=== PATIENT | female | born 1960 | race Caucasian/White ===

== ENCOUNTER → 2021-07-25 14:35 | Outpatient (CLI) | payer BC, SELFPAY | PROVIDERS: Visit Provider Family Medicine | DX: N39.0 Urinary tract infection, site not specified (principal) | CPT/HCPCS: 87086 ==

== ENCOUNTER → 2021-08-25 14:34 | Outpatient (CLI) | payer BC, SELFPAY ==
[2021-08-25 16:10] LABS: Adenovirus,PCR Not Detected (NotDetected); Bordetella Pertussis Not Detected (NotDetected); Chlamydophila Pneumoniae, PCR Not Detected (NotDetected); Coronavirus 229E Not Detected (NotDetected); Coronavirus NL63 Not Detected (NotDetected); Coronavirus OC43 Not Detected (NotDetected); Coronovirus HKU1,PCR Not Detected (NotDetected); Human Metapneumovirus Not Detected (NotDetected); Influenza A, PCR Not Detected (NotDetected); Influenza AH1, 2009 Not Detected (NotDetected); Influenza AH1, PCR Not Detected (NotDetected); Influenza AH3,PCR Not Detected (NotDetected); Influenza B, PCR Not Detected (NotDetected); Mycoplasma Pneumoniae, PCR Not Detected (NotDetected); Parainfluenza 1, PCR Not Detected (NotDetected); Parainfluenza 2, PCR Not Detected (NotDetected); Parainfluenza 3, PCR Not Detected (NotDetected); Parainfluenza 4, PCR Not Detected (NotDetected); Respiratory Syncytial Virus Not Detected (NotDetected); Rhinovirus/Enterovirus Not Detected (NotDetected)
[2021-08-25 18:26] LABS: Coronavirus 19, PCR Detected (NotDetected)
== END ==
PROVIDERS: Visit Provider Family Medicine
DX: U07.1 COVID-19 (principal); R50.9 Fever, unspecified
CPT/HCPCS: 87581; 87632; 87798; C9803; U0003; U0005

== ENCOUNTER → 2023-03-16 16:20 | Outpatient (CLI) | payer BC, SELFPAY ==
[2023-03-16 18:40] LABS: Basophils % 0.4 % (0.1-2.0); Eosinophils # 0.2 K/mm3 (0.0-0.4); Eosinophils % 1.8 % (0.1-12.0); Hematocrit 44.2 % (37.0-47.0); Hemoglobin 13.8 g/dL (12.2-16.2); Lymphocytes # 3.3 K/mm3 (0.7-4.5); Lymphocytes % 40.4 % (10-50); Mean Corpuscular HGB Conc 31.3 g/dL (31.8-35.4); Mean Corpuscular Hemoglobin 30.7 pg (27.0-31.2); Mean Corpuscular Volume 98.3 fl (81-99); Monocytes # 0.3 K/mm3 (0.1-1.0); Monocytes % 3.7 % (1.7-9.3); Neutrophils # 4.4 K/mm3 (1.8-7.8); Neutrophils % 53.6 % (37.0-80.0); Platelet Count 373 K/mm3 (142-424); Red Cell Distribution Width 12.7 % (11.5-17.5); White Blood Count 8.1 K/mm3 (4.8-10.8)
[2023-03-16 18:46] LABS: Alanine Aminotransferase 25 U/L (12-78); Albumin Level 4.3 g/dl (3.5-5.0); Albumin/Globulin Ratio 1.3 (1.1-1.8); Alkaline Phosphatase 144 U/L (38-126); Anion Gap 16.5 mEq/L (5-15); Aspartate Amino Transferase 29 U/L (14-36); Bilirubin,Total 0.3 mg/dl (0.2-1.3); Blood Urea Nitrogen 10 mg/dl (7-17); Calcium 8.9 mg/dl (8.4-10.2); Carbon Dioxide 23 mmol/L (22.0-30.0); Chloride 106 mmol/L (98-107); Estimated Glomerular Filt Rate 85 ml/min (>60); GFR (African American) 103 ML/MIN (>60); Globulin 3.2 g/dL (1.3-3.2); Glucose 119 mg/dl (74-100); HDL Cholesterol 55 mg/dl (40-60); Potassium 3.5 mmoL/L (3.5-5.1); Sodium 142 mmol/L (136-145); Total Protein,Serum 7.5 g/dl (6.3-8.2); Triglycerides 241 mg/dl (30-150); VLDL Cholesterol 48 mg/dL (0-40)
[2023-03-16 18:56] LABS: Chol/HDL Ratio 5.8 (1-3.5); Cholesterol 318 mg/dl (140-200)
[2023-03-16 18:57] LABS: Direct LDL Cholesterol 174.55 mg/dL (100-129)
[2023-03-16 19:19] LABS: Thyroid Stimulating Hormone 1.13 uIU/mL (0.465-4.68)
== END ==
PROVIDERS: PCP Family Medicine; Visit Provider Family Medicine
DX: Z00.00 Encounter for general adult medical examination without abnormal findings (principal); M54.50 Low back pain, unspecified; F41.9 Anxiety disorder, unspecified; J44.9 Chronic obstructive pulmonary disease, unspecified; Z72.0 Tobacco use; Z79.899 Other long term (current) drug therapy
CPT/HCPCS: 80053; 80061; 84443; 85025

== ENCOUNTER 2024-03-14 12:10 | Outpatient (CLI) | payer BC, SELFPAY ==
--- NOTE | 2024-03-14 12:23 | XR_ITS ---
FINAL REPORT CLINICAL HISTORY: hip pain FINDINGS: Three views of the right hip demonstrate no acute fracture or dislocation. The joint spaces appear normal. The visualized bony structures are well aligned. No soft tissue abnormality is seen. IMPRESSION: No acute bony abnormality. Reviewed, Interpreted and Dictated by Adam Corrales MD Transcribed by Argenis Steele Authenticated and [facility]
--- NOTE | 2024-03-14 12:23 | XR_ITS ---
FINAL REPORT CLINICAL HISTORY: Hip pain FINDINGS: Two views of the left hip demonstrate no acute fracture or dislocation. The joint spaces appear normal. The visualized bony structures are well aligned. No soft tissue abnormality is seen. IMPRESSION: No acute bony abnormality. Reviewed, Interpreted and Dictated by Adam Corrales MD Transcribed by Argenis Steele Authenticated and . [facility]
== END 2024-03-14 23:59 | disposition home or self-care (01) ==
LOC: RAD 12:16
PROVIDERS: PCP Family Medicine; Visit Provider Family Medicine
DX: M15.4 Erosive (osteo)arthritis (principal); M25.551 Pain in right hip; M25.552 Pain in left hip
CPT/HCPCS: 73502

== ENCOUNTER 2025-01-02 06:49 | Outpatient (CLI) | payer OTHER, SELFPAY ==
--- OUTSIDE RECORDS SUMMARY | 2025-01-02 06:51 | XMS_ITS | Data Portability ---
Author Organization [facility] ADMIN Address [address] [place] [id number] Assessment No assessment recorded. Plan of Treatment Reminders Order Date Submit Date Provider Last Modified By Organization Details Last Modified Time Details Appointments None record ed. Lab None record ed. Referral None record ed. Procedures None record ed. Surgeries None record ed. Imaging None record ed. Medication Orders None record ed. Patient TargetsNo targets recorded. Patient InstructionsNo instructions recorded. Reason for Referral None Reported. Results Created Date Observation Date Name Description Value Unit Range Abnormal Flag Note LastModifiedBy Organization Detail LastModifiedTime 06/17/20 audio gram No observ ation record ed. [email or web address] Not Available 06/17 07:59:21 06/21/2006/21/2023 audio gram No observ ation record ed. [email or web address] Not Available 2022 12:52:41 Result Notes None recorded. Problems Name Problem SNOMED Code Status Onset Date Resolution Date Notes Provider Name and Address Organization Details Recorded Time Sensorineural hearing loss 56097503 Active 2022 AGAPITO CHEN, AUD [address] [facility], [place], [address] , [facility] & [place] 12:50:11 Problem Notes None recorded. Procedures Surgical History None recorded. Imaging Results Imaging Date Name Status LastModified by Organiz ation Details LastModified Time 06/17/2023 audiogram completed [email or web address] Information no t available 06/17/2023 07:59:21 06/21/2023 audiogram completed [email or web address] Information no t available 06/21/2023 12:52:41 Procedure Notes None recorded. Medical Equipment None Reported. Medications Name Sig Start Date Stop Date Status Note LastModified by Organization Details LastModified Time amoxicillin 500 mg capsule active Not Available Not Available Not Available ibuprofen 800 mg tablet active Not Available Not Available Not Available fluconazole 150 mg tablet active Not Available Not Available Not Available prednisone 20 mg tablet active Not Available Not Available Not Available butalbital-acetamin ophen-caffeine 50 mg-325 mg-40 mg tablet active Not Available Not Available Not Available alprazolam 0.5 mg tablet active Not Available Not Available Not Available amitriptyline 25 mg tablet active Not Available Not Available Not Available methocarbamol 750 mg tablet active Not Available Not Available No t Available methylprednisolone 4 mg tablets in a dose pack active Not Available Not Available No t Available albuterol sulfate HFA 90 mcg/actuation aerosol inhaler active Not Available Not Availa ble Not Available brompheniramine-pse udoephedrine-DM 2 mg-30 mg-10 mg/5 mL oral syrup active Not Available Not Available N ot Available clobetasol 0.05 % scalp solution active Not Available Not Availab le Not Available cefdinir 300 mg capsule active Not Available Not Available Not Available ezetimibe 10 mg tablet active Not Available Not Available Not Available rosuvastatin 20 mg tablet active Not Available Not Available Not Available Vitals None Recorded Social History None recorded. Functional Status None recorded. Mental Status None recorded. Family History Nothing Reported. Medical History No medical history recorded. Gynecological HistoryNo gynecological history recorded. Obstetrics History GPAL:G 0 P 0 0 0 0 Past Encounters Encounter ID Performer Location Encounter Start Date Encounter Closed Date Diagnosis/Indication Diagnosis SNOMED-CT Code Diagnosis ICD10 Code Diagnosis Note [id number] [facility] [address] [place] [address] [place] [phone] 06/21/2023 12:33:38 06/21/2023 12:49:43 Sensorineural hearing loss 21560906 H90.3 Health Concerns Section Related Observation LastModified by Organization Detai ls LastModified Time None Recorded Concern Status LastModified by Organization Details LastModified Time None Recorded Advance Directives Directive None Recorded Payers Encounter Date Sequence Insurance Name Policy Number Policy Guevara Covered Member ID Guevara Member ID Guarantor Name 06/21/2023 1 *SELF PAY* Vo nna Quintin Notes Date Note Type Note Provider Name and Address Organization Details Recorded Time 06/21/2023 text/html Ms. Ribeiro was seen today for an audiologic evaluation per her employer. She reports gradual hearing loss due to excessive noise exposure (agricultural noise and industrial noise). She denies tinnitus, dizziness, drainage, aural fullness/pressure, and ear pain. Otoscopic inspection was unremarkable bilaterally. Audiometric testing revealed a mild, sloping to moderate, mid through high freq SNHL with good word rec scores. 1-Discussed findings with Ms. Ribeiro. 2-Findings were forwarded to her employer. 3-F/u hearing testing as directed. AGAPITO CHEN, AUD [address] [facility], [place], [address], [facility] - [place] & [place] 06/21/2023 12:52:48 OBGyn Episode No OBEpisode recorded.
--- NOTE | 2025-01-02 07:00 | CT_ITS ---
FINAL REPORT TECHNIQUE: Thin section axial images were obtained through the lungs using a low-dose technique per lung cancer screening protocol. Reconstruction images were obtained using the axial data. Exam was performed using dose reduction technique. CLINICAL HISTORY: lung cancer screening. Smoker. 1ppd for 56 years. COMPARISON: No prior FINDINGS: CTDLvol: 2.90 DLP: 108.38 Current smoker 56 pack year history Lungs: There is a spiculated nodule in the posterior left upper lobe measuring 12 x 9 x 8 mm. Reticulonodular opacities in the right lower lobe could be infectious or inflammatory. There are also reticulonodular opacities in the right midlung. Underlying emphysema is noted. Lymph nodes: No thoracic lymphadenopathy. Mediastinum: Heart size is normal. Prominent coronary artery calcifications. Pleura/pericardium: No pleural or pericardial effusion. Other: No acute abnormality in the upper abdomen. IMPRESSION: 1. Posterior left upper lobe nodule. Lung RADS 4A. PET/CT is recommended. 2. Reticular nodular densities in the right lung are likely infectious or inflammatory. 3. Lung RADS modifier S: Coronary artery calcifications. Reviewed, Interpreted and Dictated by Noa Dumas MD Transcribed by Gloria Vazquez Authenticated and [facility]
== END 2025-01-02 23:59 | disposition home or self-care (01) ==
LOC: RAD 06:50
PROVIDERS: PCP Family Medicine; Visit Provider Obstetrics & Gynecology
DX: J44.9 Chronic obstructive pulmonary disease, unspecified (principal); J45.20 Mild intermittent asthma, uncomplicated; F17.210 Nicotine dependence, cigarettes, uncomplicated; Z12.2 Encounter for screening for malignant neoplasm of respiratory organs
CPT/HCPCS: 71271

== ENCOUNTER 2025-04-26 09:04 | Outpatient (CLI) | payer MEDICARE, SELFPAY ==
--- OUTSIDE RECORDS SUMMARY | 2025-03-06 13:00 | XMS_ITS | Encounter Summary ---
Author Organization [place] [address] Care Team Providers Care Rolled Ham Lacer Name Role Phone Darrel Rico MD Primary Care Provider [phone] Reason for Visit * In Office Procedure (Routine) - Closed Specialty Diagnoses / Procedures Referred By Contac t Referred To Contact Nurse Practitioner / Gynecology Diagnoses Frequency of micturition UDE Procedures NJ COMPLX CYSTOMETRO W/VOID PRESS & URETHRAL PROFIL NJ COMPLEX UROFLOMETRY NJ EMG STDS ANAL/URTL SPHNCTR OTH/THN NDL NJ VOID PRESSURE STUDIES INTRAABDOMINAL URODYNAMICS Zoila Monroe MD [address] [place] [address] Phone: tel: fax: Rosa Elena Garcia APRN [address] [place] [address] Phone: tel: fax: Referral ID Status Reason Start Date Expiration Date Visits Re quested Visits Authorized [id number] Closed 03/06/2025 04/05/2025 1 1 Encounter Details Date Type Department Care Team (Latest Contact Info) Description 03/06/2025 1:00 PM EDT Procedure visit [facility] Urogynecology [place] [phone] Rosa Elena Garcia APRN [address] [place] [address] Female genital prolapse, unspecified type (Primary Dx); OAB (overactive bladder); Urinary frequency Social History Tobacco Use Types Packs/Day Years Used Date Smoking Tobacco: Every Day Cigarettes 1 56.6 Started: 09/18/1968 Smokeless Tobacco: Never Comments No Sex and Gender Information Value Date Recorded Sex Assigned at Not on file Legal Sex Female 7:56 AM EST Gender Identity Not on file Sexual Orientation Not on file documented as of this encounter Progress Notes * Rosa Elena Garcia APRN - 03/06/2025 1:00 PM EDT Images from the original note were not included. Urodynamic Procedure Note John Quintin 1960 Urodynamicist: Rosa Elena Garcia APRN Equipment: modu Brief History/Indication: Patient is a 64 y.o. female with subjective complaints of overactive bladder, prolapse, and stress incontinence who presents for an urodynamic evaluation. Office Fill Study: Catheter PVR = 100 mL UA concentration but clear [employer] negative C&S pending Procedure: The patient was taken to the Urodynamics suite and a free urine flow was obtained followed by catheterization for residual urine. A double-lumen urodynamic catheter was introduced to the bladder for measuring bladder pressure, and for filling. EMG patch electrodes were placed perianally for recording activity of the anal sphincter. A vaginal cather was inserted to record the abdominal pressure. The entire process was displayed and analyzed using the modu Urodynamic machine and software. FINDINGS UroFlow: Urine Dip: normal Voided volume: 438 ml PVR: 100 ml Max flow: 13 ml/sec with an average flow rate of 7 ml/sec CMG: First sensation: 5 ml First degree: 57 ml Strong desire: 196 ml Max capacity: 252 ml Uninhibited detrusor contraction:no Leak Point Pressures: No leak cm/H2O at 150ml with cough, valsalva, (-) leak, reduction , and sitting No leak cm/H2O at 252 ml (max) with cough, valsalva, (-) leak, reduction , and sitting Pressure voiding study: Maximum detrusor pressure at peak flow 78 cm/H2O Peak flow rate 16 ml/sec. Maximum abd pressure at peak flow 40 cm/H2O Flow time 44 sec. Maximum vesical pressure at peak flow 112 cm/H2O Voided volume 313 ml. Residual: (Max cap-voided) 0ml. Max Pdet: 81 MUCP: 105, 78, 82 EMG: correlates Assessment: 1) tobacco abuse 2) posterior prolapse 3 3) OAB/UUI Daughter Velia has renal stones. Cat tattoo! Plan: Consider consenting John for: Posterior repair, cystoscopy (1 hour, general, outpatient, 6 weeks OFF) - may need home catheter, removal. - will need post op OAB medication! - smoking cessation and constipation management post op or bulge is likely to recur quickly Zoila Monroe MD documented in this encounter Plan of Treatment Upcoming Encounters Date Type Department Care Team (Latest Contact Info) Description 05/02/2025 12:33 PM EDT Hospital Encounter [facility] [address] [place] [place] [address] Zoila Monroe MD [address] [place] [address] 05/02/2025 12:33 PM EDT Anesthesia Event [facility] [address] [place] [address] Mary Lou Ponce APRN [address] [place] [address] 05/02/2025 12:33 PM EDT - 05/02/2025 1:28 PM EDT Surgery [facility] [address] [place] [address] Zoila Monroe MD [address] [place] [address] ANTERIOR AND POSTERIOR REPAIR (CYSTOCELE AND RECTOCELE REPAIR) 06/12/2025 11:20 AM EDT Office Visit [facility] [address] [phone] Rosa Elena Garcia APRN [address] [place] [address] Scheduled Procedures Name Priority Associated Diagnoses Date/Ti me ANTERIOR AND POSTERIOR REPAIR (CYSTOCELE AND RECTOCELE REPAIR) Female genital prolapse, unspecified type Rectocele 05/02/2025 12:33 PM EDT documented as of this encounter Procedures Procedure Name Priority Date/Time Associated Diagnosis Comments SEP URINALYSIS POC Routine 03/06/2025 1: 06 PM EDT Urinary frequency documented in this encounter Results * SEP URINALYSIS POC (03/06/2025 1:06 PM EDT) UA Color POC Yellow Color 03/06/2025 1:09 PM EDT [facility] UA Appear POC Clear Clear 03/06/2025 1:09 PM EDT [facility] UA Gluc POC Negative Negative mg/dL 03/06/2025 1:09 PM EDT [facility] Bili POC Negative Negative 03/06/2025 1:09 PM EDT [facility] UA Ketones POC Negative Negative mg/dL 03/06/2025 1:09 PM EDT [facility] UA SG POC <=1.005 1.001 - 1.035 no units 03/06/2025 1:09 PM EDT [facility] UA Blood POC Negative Negative 03/06/2025 1:09 PM EDT [facility] U[facility] pH POC 6.0 5.0 - 8.0 pH 03/06/2025 1:09 PM EDT [facility] UA Protein POC Negative Negative mg/dL 03/06/2025 1:09 PM EDT [facility] UA Urobilinogen POC 0.2 0.2, 1.0 03/06/2025 1:09 PM EDT [facility] UA Nitrite POC Negative Negative 03/06/2025 1:09 PM EDT [facility] UA Leuk Est POC Negative Negative 1:09 PM EDT [facility]EC[facility] Urine STRUCTURE OF URINARY TRACT PROPER / Unknown 03/06/2025 1:06 PM EDT 03/06/2025 1:09 PM EDT us Rosa Elena Garcia SLAB LIFTING SUPERVISOR POINT OF CARE TEST ORDER LIANA Final Result [facility] UROGYNECOLOGY [address] [place] [address] documented in this encounter Visit Diagnoses Diagnosis Female genital prolapse, unspecified type- Primary OAB (overactive bladder) Hypertonicity of bladder Urinary frequency Female genital prolapse, unspecified type Rectocele documented in this encounter Care Teams Rolled Ham Lacer Relationship Specialty Start Date End Date Darrel Rico MD PCP - General Family Medicine 10/08/17 documented as of this encounter
--- OUTSIDE RECORDS SUMMARY | 2025-04-20 08:30 | XMS_ITS | Encounter Summary ---
Author Organization [place] [address] Care Team Providers Care Youth Associate Name Role Phone Darrel Rico MD Primary Care Provider [phone] Reason for Referral * (Routine) - Pending Review Specialty Diagnoses / Procedures Referred By Contac t Referred To Contact Diagnoses Rectocele Overactive bladder Procedures AMB UROGYN SURGERY COMMUNICATION ORDER Zoila Monroe MD [address] [place] [address] Phone: tel: fax: Referral ID Status Reason Start Date Expiration Date V isits Requested Visits Authorized [id number] Pending Review 04/20/2025 04/20/2026 1 1 Encounter Details Date Type Department Care Team (Latest Contact Info) Description 04/20/2025 8:30 AM EDT Office Visit [facility]ne[facility] [place] [phone] Zoila Monroe MD [address] [place] [address] Rectocele (Primary Dx); Overactive bladder; Vulvar irritation Social History Tobacco Use Types Packs/Day Years Used Date Smoking Tobacco: Every Day Cigarettes 1 56.6 Started: 09/18/1968 Smokeless Tobacco: Never Comments No Sex and Gender Information Value Date Recorded Sex Assigned at Not on file Legal Sex Female 7:56 AM EST Gender Identity Not on file Sexual Orientation Not on file documented as of this encounter Ordered Prescriptions Prescription Sig Dispense Quantity Refills Last Filled Start Date End Date trospium (SANCTURA) 20 mg Oral TabletIndications: Overactive bladder Take 1 Tablet by mouth 2 times daily. 60 Tablet 11 04/20/2025 clobetasoL (TEMOVATE) 0.05 % Top OintmentIndication s:Vulvar irritation Apply topically daily. 45 g 1 04/20/2025 documented in this encounter Progress Notes * Zoila Monroe MD - 04/20/2025 8:30 AM EDT Images from the original note were not included. Surgery Consent John Ribeiro 1960 HPI: Patient is a 64 y.o. year old female here for follow up of defecatory dysfunction. Daughter Velia present - reviews all the names she has for the fake spectroscopist on [employer] like Lt Latex . She presents for review of her bladder testing and for surgery consent. All prior notes reviewed indetail and patient's questions are answered in full. Patient has normal PVR. Patient has tried and failed therapy with kegels and fiber and diet (see initial consultation note and Urodynamics testing note for details). Patients past medical, family and social histories were reviewed and updated. There were no changesexcept as noted. Assessment: defecatory dysfunction, overactive bladder, and rectocele Plan: Although patient presents to discuss the reasons for surgical consult, we also reviewed alternativetreatments for her pelvic floor condition. After counseling my patient today about the diagnosis and disease management face to face. We reviewed the disease pathophysiology and reviewed my anatomic drawings. Once all questions are addressed, the patient is consented for: Posterior repair, cystoscopy (1 hour, general, outpatient, 6 weeks OFF) - may need home catheter, removal. - will need OAB medication, so Rx Trospium 20mg BID ordered to [facility] - smoking cessation and constipation management post op or bulge is likely to recur quickly - patient requests refill of Clobetasol cream rx; sent to [facility] She is informed of the risks, benefits, indications, and alternatives - including but not limited to: bleeding, blood transfusion, infection, damage to adjacent organs such as bladder, bowel, urethra, and ureters, chronic pelvic pain, dyspareunia, procedure failure, need for reoperation, de huong orworsening incontinence, urinary retention with need for long-term or permanent catheterization, fistula formation, 3-5% risk of mesh erosion or exposure (increased risk in diabetics and smokers), DVT, pulmonary embolism, anesthesia risks, pneumonia, and . Patient verbalized understanding to all and gave verbal and written consent to proceed. Patient notified of her responsibility for obtaining MEDICAL CLEARANCE for surgery by providing a pre-operative history and physical from her primary care physician within 30 days of surgery, including blood work and other necessary testing. All paperwork given to patient today including FMLA forms and notice of a fee for completing FMLA documents on her behalf. Reviewed expectations for recovery in detail. Time-Based Billing Statement I spent 43 minutes in the care of this patient on this calendar day. Activities performed during this time include: Reviewing labs, Obtaining or reviewing history (separately obtained), Counseling and educating, Ordering medications, Ordering procedures, Documenting clinical information in the EHR, and Care coordination The total time documented above did not include the following activities which were also performed on this calendar day: - printed UROS graphs Zoila Monroe MD [facility] Re[facility]ive [facility] [address] [place] [address] phone ext [phone] fax [email or web address] 04/19/25 3:47 PM documented in this encounter Miscellaneous Notes * Patient Instructions - Zoila Monroe MD - 04/20/2025 8:30 AM EDT Images from the original note were not included. documented in this encounter Plan of Treatment Upcoming Encounters Date Type Department Care Team (Latest Contact Info) Description 05/02/2025 12:33 PM EDT Hospital Encounter [facility] [address] [place] [address] Zoila Monroe MD [address] [place] [phone] 05/02/2025 12:33 PM EDT Anesthesia Event [facility] [address] [place] [address] Mary Lou Ponce APRN [address] [place] [address] 05/02/2025 12:33 PM EDT - 05/02/2025 1:28 PM EDT Surgery [facility] [address] [place] [address] Zoila Monroe MD [address] [place] [address] ANTERIOR AND POSTERIOR REPAIR (CYSTOCELE AND RECTOCELE REPAIR) 06/12/2025 11:20 AM EDT Office Visit [facility]ro[facility]ne[facility] [address] [phone] Rosa Elena Garcia, FROZEN MEAT CUTTER [address] [place] [address] Scheduled Procedures Name Priority Associated Diagnoses Date/Ti me ANTERIOR AND POSTERIOR REPAIR (CYSTOCELE AND RECTOCELE REPAIR) Female genital prolapse, unspecified type Rectocele 05/02/2025 12:33 PM EDT documented as of this encounter Visit Diagnoses Diagnosis Rectocele- Primary Overactive bladder Hypertonicity of bladder Vulvar irritation Other specified noninflammatory disorder of vulva and perineum Female genital prolapse, unspecified type Rectocele documented in this encounter Orders Nursing Count Last Ordered Date First Orde red Date AMB UROGYN SURGERY COMMUNICATION ORDER 1 documented in this encounter Care Teams Youth Associate Relationship Specialty Start Date End Date Darrel Rico MD PCP - General Family Medicine 10/08/17 documented as of this encounter
[2025-04-26 14:52] LABS: Hematocrit 43.4 % (37.0-47.0); Hemoglobin 13.5 g/dL (12.2-16.2); Immature Granulocytes % 0.4 %; Mean Corpuscular HGB Conc 31.1 g/dL (31.8-35.4); Mean Corpuscular Hemoglobin 31.0 pg (27.0-31.2); Mean Corpuscular Volume 99.5 fl (81-99); Nucleated Red Blood Cells % 0 %; Platelet Count 363 K/mm3 (142-424); Red Blood Count 4.36 M/mm3 (4.20-5.40); Red Cell Distribution Width-SD 47.0 fL; White Blood Count 8.3 K/mm3 (4.8-10.8)
--- OUTSIDE RECORDS SUMMARY | 2025-04-27 10:16 | XMS_ITS | Encounter Summary ---
Author Organization [place] [address] Care Team Providers Care Design Center Consultant Name Role Phone Darrel Rico MD Primary Care Provider [phone] Encounter Details Date Type Department Care Team (Latest Contact Info) Description 02/13/2025 Results Follow-Up [facility] Urogynecology [address] [phone] Zoila Monroe MD [address] [place] [phone] URINALYSIS, URINE CULTURE (NO STAIN) Social History Tobacco Use Types Packs/Day Years Used Date Smoking Tobacco: Every Day Cigarettes 1 56.6 Started: 09/18/1968 Smokeless Tobacco: Never Comments No Sex and Gender Information Value Date Recorded Sex Assigned at Not on file Legal Sex Female 7:56 AM EST Gender Identity Not on file Sexual Orientation Not on file documented as of this encounter Progress Notes * Zoila Monroe MD - 02/13/2025 9:06 AM EDT Staff Please call patient. Patient has negative urine culture. Encourage her to PLEASE set up Mychart. Thank you. Zoila Monroe MD documented in this encounter Plan of Treatment Upcoming Encounters Date Type Department Care Team (Latest Contact Info) Description 05/02/2025 12:33 PM EDT Hospital Encounter [facility] [address] [place] [phone] Zoila Monroe MD [address] [place] [address] 05/02/2025 12:33 PM EDT Anesthesia Event [facility] [address] [place] [address] Mary Lou Ponce, JOLIE [address] [place] [address] 05/02/2025 12:33 PM EDT - 05/02/2025 1:28 PM EDT Surgery [facility] [address] [place] [address] Zoila Monroe MD [address] [place] [address] ANTERIOR AND POSTERIOR REPAIR (CYSTOCELE AND RECTOCELE REPAIR) 06/12/2025 11:20 AM EDT Office Visit [facility]ro[facility]ne[facility] [address] [phone] Rosa Elena Garcia, CRYOGENIC TRANSPORT DRIVER [address] [place] [address] Scheduled Procedures Name Priority Associated Diagnoses Date/Ti me ANTERIOR AND POSTERIOR REPAIR (CYSTOCELE AND RECTOCELE REPAIR) Female genital prolapse, unspecified type Rectocele 05/02/2025 12:33 PM EDT documented as of this encounter Visit Diagnoses Not on filedocumented in this encounter Care Teams Design Center Consultant Relationship Specialty Start Date End Date Darrel Rico MD PCP - General Family Medicine 10/08/17 documented as of this encounter
--- OUTSIDE RECORDS SUMMARY | 2025-04-27 10:18 | XMS_ITS | Encounter Summary ---
Author Organization [facility] [place] [address] Care Team Providers Care Crap Game Box Person Name Role Phone Darrel Rico MD Primary Care Provider [phone] Encounter Details Date Type Department Care Team (Latest Contact Info) Description 04/23/2025 Travel Social History Tobacco Use Types Packs/Day Years Used Date Smoking Tobacco: Every Day Cigarettes 1 56.6 Started: 09/18/1968 Smokeless Tobacco: Never Comments:Nicotine patch (sarah ble patch per pt Alcohol Use Standard Drinks/Week Comments Not Currently 0 (1 standard drink = 0.6 oz pur e alcohol) Comments No Sex and Gender Information Value Date Recorded Sex Assigned at Not on file Legal Sex Female 7:56 AM EST Gender Identity Not on file Sexual Orientation Not on file documented as of this encounter Plan of Treatment Upcoming Encounters Date Type Department Care Team (Latest Contact Info) Description 05/02/2025 12:33 PM EDT Hospital Encounter [facility] [address] [place] [address] Zoila Monroe MD [address] [place] [address] 05/02/2025 12:33 PM EDT Anesthesia Event [facility] [address] [place] [address] Mary Lou Ponce APRN [address] [place] [address] 05/02/2025 12:33 PM EDT - 05/02/2025 1:28 PM EDT Surgery [facility] PERI[facility] [address] [place] [id number] Zoila Monroe MD [address] [place] [address] ANTERIOR AND POSTERIOR REPAIR (CYSTOCELE AND RECTOCELE REPAIR) 06/12/2025 11:20 AM EDT Office Visit [facility] [address] [address] Rosa Elena Garcia APRN [address] [place] [address] Scheduled Procedures Name Priority Associated Diagnoses Date/Ti me ANTERIOR AND POSTERIOR REPAIR (CYSTOCELE AND RECTOCELE REPAIR) Female genital prolapse, unspecified type Rectocele 05/02/2025 12:33 PM EDT documented as of this encounter Goals Goal Patient Goal Type Associated Problems Recent Progress Patient-Stated? Author Autogenerat ed Goal Care Plan Autogenerated Problem No Charmaine Colón documented as of this encounter Visit Diagnoses Not on filedocumented in this encounter Additional Health Concerns Active Problems Noted Date Diagnosed Date Autogenerated Problem 04/23/2025 documented as of this encounter Care Teams Crap Game Box Person Relationship Specialty Start Date End Date Darrel Rico MD PCP - General Family Medicine 10/08/17 documented as of this encounter
--- OUTSIDE RECORDS SUMMARY | 2025-04-27 10:18 | XMS_ITS | Clinical Summary ---
Author Organization [facility] Address [address] [facility] [place] [address] Phone Care Team Providers Care Health Social Work Professor Name Role Phone Darrel Rico MD Primary Care Provider [phone] Allergies Active Allergy Reactions Criticality Noted Date Comments Doxycycline Nausea And Vomiting Low 06/04/2022 Morphine Itching,Other (See Comments) High 06/04/2022 Agitation Nsaids (Non-Steroidal Anti-Inflammatory Drug) Itching,Swelling Medium 04/08/2016 Not all , --- able to take ibuprofen, diclofenac Oxycodone Itching,Nausea Only Low 06/04/2022 Medications tiZANidine (ZANAFLEX) 4 mg Oral TabletIndications: Sprain of right hip, initial encounter,Hip sprain, left, initial encounter,Primary osteoarthritis of both hips,Sciatica, right side Take 2 Tablets by mouth nightly. 60 Tablet 05/04/20 24 Active diclofenac (VOLTAREN) 75 mg Oral Tablet, Delayed Release (E.C.)Indications: Sprain of right hip, initial encounter,Hip sprain, left, initial encounter,Primary osteoarthritis of both hips,Sciatica, right side Take 1 Tablet by mouth 2 times daily. 60 Tablet 06/07/20 24 Active butalbital-acetami nophen-caffeine (FIORICET) 50-325-40 mg Oral Tablet Take 1 Tablet by mouth daily as needed for Pain. Active ibuprofen (ADVIL;MOTRIN) 800 mg Oral Tablet 600 mg by Enteral route 3 times daily. 03/30/20 24 Active ALPRAZolam (XANAX) 0.5 mg Oral Tablet Take 0.5 mg by mouth nightly as needed. 03/12/20 22 Active methocarbamoL (ROBAXIN) 750 mg Oral Tablet 750 mg by Enteral route 3 times daily. Active methylPREDNISolone (MEDROL DOSPACK) 4 mg Oral Tablets, Dose Pack do not take NSAID medications while taking. follow package directions 21 Tablet 04/06/20 Active Additional Information Patient not taking.Reason: Pt electing to not take the medication, Informant: Self/Patient, Reported on 04/23/2025 tiZANidine (ZANAFLEX) 4 mg Oral Tablet Take 1 Tablet by mouth nightly. 30 Tablet 04/06/20 24 Active Additional Information Patient not taking.Reason: Other, Informant: Self/Patient, Reported on 04/23/2025 diclofenac (VOLTAREN) 75 mg Oral Tablet, Delayed Release (E.C.) Take 1 Tablet by mouth 2 times daily. do not take while taking the medrol dosepack 30 Tablet 04/06/20 Active Additional Information Patient not taking.Reason: Therapy Completed, Informant: Self/Patient, Reported on 04/23/2025 clobetasoL (TEMOVATE) 0.05 % Top OintmentIndication s:Vulvar irritation Apply topically daily. 45 g 1 04/20/20 25 Active trospium (SANCTURA) 20 mg Oral TabletIndications: Overactive bladder Take 1 Tablet by mouth 2 times daily. 60 Tablet 11 04/20/20 25 Active acetaminophen (TYLENOL) 500 mg Oral Tablet Take 500 mg by mouth every 4 hours as needed for Pain. Active vitamin E 670 mg (1,000 unit) Oral Capsule Take 1,000 Units by mouth daily. Active albuterol (PROVENTIL HFA; VENTOLIN HFA) 90 mcg/actuation Inhl HFA Aerosol Inhaler Inhale 2 Puffs into the lungs 0800, 1200, 1600, 2000. Active nicotine (NICODERM CQ) 7 mg/24 hr TD Patch [address] 1 Patch onto the skin every 24 hours. Active polyethylene glycol (GLYCOLAX, MIRALAX) 17 gram Oral Powder in Packet Take 2.9 g by mouth daily as needed for Constipation. Active Active Problems Problem Noted Date Diagnosed Date Female genital prolapse 04/23/2025 Rectocele 04/23/2025 Encounters Date Type Department Care Team Description 04/25/2025 Orders Only [facility] [place] [phone] Marge Zhang LPN Female genital prolapse, unspecified type (Primary Dx); Rectocele 04/25/2025 [place] [facility] [place] [address] Marge Zhang LPN Pre-op Call 04/23/2025 Travel 04/23/2025 Telephone [facility] [place] [facility] [place] [address] Marge Zhang LPN Surgery Scheduling 04/20/2025 8:30 AM EDT Office Visit [facility] [place] [address] Zoila Monroe MD Rectocele (Primary Dx); Overactive bladder; Vulvar irritation 03/06/2025 1:00 PM EDT Procedure visit [facility] [place] [facility] [place] [address] Rosa Elena Garcia, JOLIE Female genital prolapse, unspecified type (Primary Dx); OAB (overactive bladder); Urinary frequency 02/13/2025 Results Follow-Up [facility] [place] [facility] [place] [phone] Zoila Monroe MD URINALYSIS, URINE CULTURE (NO STAIN) 02/08/2025 8:00 AM EDT Office [place] [facility] [place] [place] [phone] Zoila Monroe MD Abnormal defecation (Primary Dx); Rectocele; Frequency of urination from Last 3 Months Surgical History Surgery Date Site/Laterality Comments TUBAL LIGATION HYSTERECTOMY TONSILLECTOMY AND ADENOIDECTOMY OTHER SURGICAL HISTORY Bilateral carpel tunnel surgery DENTAL SURGERY Medical History Medical History Date Comments Asthma Arthritis OAB (overactive bladder) Allergic rhinitis due to pollen Other lichen planus Pneumonia Hx of Walking Pn eumonia per pt Chronic cough Heart murmur as a child Heartburn occ. Constipation Anesthesia complication woke up during hysterectomy 5x Post-operative nausea and vomiting Motion sickness Family History Medical History Relation Name Comments Anesth Problems Neg Hx Social History Tobacco Use Types Packs/Day Years Used Date Smoking Tobacco: Every Day Cigarettes 1 56.6 Started: 09/18/1968 Smokeless Tobacco: Never Tobacco Cessation:Ready to Q uit: Yes; Counseling Given: Not Answered Comments:Nicotine patch (double patch per pt Alcohol Use Standard Drinks/Week Comments Not Currently 0 (1 standard drink = 0.6 oz pur e alcohol) Comments No Sex and Gender Information Value Date Recorded Sex Assigned at Not on file Legal Sex Female 7:56 AM EST Gender Identity Not on file Sexual Orientation Not on file Obstetrics History Last Filed Vital Signs Vital Sign Reading Time Taken Comments Blood Pressure - - Pulse 72 02/08/2025 8:20 AM EDT Temperature - - Respiratory Rate - - Oxygen Saturation 97% 02/08/2025 8:20 AM EDT Inhaled Oxygen Concentration - - Weight 80.7 kg (178 lb) 04/23/2025 10:25 AM EDT Height 165.1 cm (5' 5 ) 04/23/2025 10:25 AM EDT Body Mass Index 29.62 04/23/2025 10:25 AM EDT Plan of Treatment Upcoming Encounters Date Type Department Care Team (Latest Contact Info) Description 05/02/2025 12:33 PM EDT Hospital Encounter [facility] [address] [place] [address] Zoila Monroe MD [address] [place] [address] 05/02/2025 12:33 PM EDT Anesthesia Event [facility] [address] [place] [address] Mary Lou Ponce, NUCLEAR SUPERVISING OPERATOR [address] [place] [address] 05/02/2025 12:33 PM EDT - 05/02/2025 1:28 PM EDT Surgery [facility] [address] [place] [address] Zoila Monroe MD [address] [place] [address] ANTERIOR AND POSTERIOR REPAIR (CYSTOCELE AND RECTOCELE REPAIR) 06/12/2025 11:20 AM EDT Office Visit [facility] [address] [phone] Rosa Elena Garcia, NUCLEAR SUPERVISING OPERATOR [address] [place] [phone] Scheduled Procedures Name Priority Associated Diagnoses Date/Ti me ANTERIOR AND POSTERIOR REPAIR (CYSTOCELE AND RECTOCELE REPAIR) Female genital prolapse, unspecified type Rectocele 05/02/2025 12:33 PM EDT Health Maintenance Due Date Last Done Comments Wellness Exam Medicare 1963 Hepatitis C Screening 1978 DTaP/TDaP/Td (1 - Tdap) 1979 Cervical Cancer Screening 1981 Pap Smear 1981 HPV/Pap Cotest 1990 Breast Cancer Screening 2000 Cologuard 2005 Colon Cancer Screening 2005 Colonoscopy 2005 FIT 2005 Sigmoidoscopy 2005 Virtual Colonography 2005 Low Dose Lung Cancer Screening 2010 Zoster (1 of 2) 2010 COVID-19 Vaccine ( season) 2024 Influenza Vaccine (#1) 2025 , 07/27/2023, 08/25/2022, Additional history exists Pneumococcal Vaccine 50+ Completed 07/27/2023, 07/22 Hepatitis B Vaccine Aged Out No longe r eligible based on patient's age to complete this topic Meningococcal B Vaccine Aged Out No l onger eligible based on patient's age to complete this topic Goals Goal Patient Goal Type Associated Problems Recent Progress Patient-Stated? Author Autogenerat ed Goal Care Plan Autogenerated Problem No Charmaine Colón Procedures Procedure Name Priority Date/Time Associated Diagnosis Comments SEP URINALYSIS POC Routine 03/06/2025 1: 06 PM EDT Urinary frequency SEP URINALYSIS POC Routine 02/08/2025 8: 36 AM EDT Frequency of urination URINALYSIS Routine 02/08/2025 8:35 AM EDT Frequency of urination URINE CULTURE (NO STAIN) Routine 02/08/2025 8:35 AM EDT Frequency of urination from Last 3 Months Results * [facility] [place] [place] [facility] [place]INAL[place]IS POC (03/06/2025 1:06 PM EDT) Only the most recent of2 resultswithin the time period is included. [facility] UA Color POC Yellow Color 03/06/2025 1:09 PM EDT [facility] [place] [facility] Appear POC Clear Clear 03/06/2025 1:09 PM EDT [facility] UA Gluc POC Negative Negative mg/dL 03/06/2025 1:09 PM EDT [facility] [place] [facility] Bili POC Negative Negative 03/06/2025 1:09 PM EDT [facility] [place] [facility] Ketones POC Negative Negative mg/dL 03/06/2025 1:09 PM EDT [facility] [place] [place] [facility] SG POC <=1.005 1.001 - 1.035 no units 03/06/2025 1:09 PM EDT [facility] [place] [facility] Blood POC Negative Negative 03/06/2025 1:09 PM EDT [facility] UA pH POC 6.0 5.0 - 8.0 pH 03/06/2025 1:09 PM EDT [facility] [place] [facility] Protein POC Negative Negative mg/dL 03/06/2025 1:09 PM EDT [facility] [place] [facility]A Urobilinogen POC 0.2 0.2, 1.0 03/06/2025 1:09 PM EDT [facility] [place] [facility] Nitrite POC Negative Negative 03/06/2025 1:09 PM EDT [facility] [place] [facility]A Leuk Est POC Negative Negative 1:09 PM EDT [facility] [place] [place] [facility] Urine STRUCTURE OF URINARY TRACT PROPER / Unknown 03/06/2025 1:06 PM EDT 03/06/2025 1:09 PM EDT Rosa Elena Garcia NUCLEAR SUPERVISING OPERATOR POINT OF CARE TEST ORDER LIANA Final Result [facility] [address] [place] [address] [place] [address] * URINALYSIS (02/08/2025 8:35 AM EDT) UA Color Colorless 02/08/2025 8:37 PM EDT [facility] UA Appear Clear Clear 02/08/2025 8:37 PM EDT [facility] UA Glucose Negative Negative mg/dL 02/08/2025 8:37 PM EDT [facility] UA Ketones Negative Negative mg/dL 02/08/2025 8:37 PM EDT [facility] UA Blood Negative Negative 02/08/2025 8:37 PM EDT [facility] UA pH 6.5 5.0 - 8.0 pH 02/08/2025 8:37 PM EDT [facility] UA Protein Negative Negative mg/dL 02/08/2025 8:37 PM EDT [facility] UA Urobilinogen Normal <=1 mg/dL 8:37 PM EDT [facility] UA Bili Negative Negative 02/08/2025 8:37 PM EDT [facility] UA Nitrite Negative Negative 02/08/2025 8:37 PM EDT [facility] UA Leuk Est Negative Negative 02/08/2025 8:37 PM EDT [facility] UA Spec Grav 1.009 1.001 - 1.035 no units 02/08/2025 8:37 PM EDT [facility] Comment:Reference range evan d for random specimens only. Urine URINARY BLADDER STRUCTURE / Unknown 02/08/2025 8:35 AM EDT 02/08/2025 8:35 AM EDT Zoila Monroe MD URINE ORDERABLES Final Re sult [employer] [address] [facility] , [place] [address] * URINE CULTURE (NO STAIN) (02/08/2025 8:35 AM EDT) Culture No growth at 30 hours. 02/10/2025 3:19 PM EDT [employer] Urine URINARY BLADDER STRUCTURE / Unknown 02/08/2025 8:35 AM EDT 02/08/2025 8:35 AM EDT Zoila Monroe MD MICROBIOLOGY - GENERAL OR DERABLES Final Result Performing Organization Address City/[facility] Co de Phone Number [employer] [address] [facility] , [place] [address] from Last 3 Months Additional Health Concerns Active Problems Noted Date Diagnosed Date Autogenerated Problem 04/23/2025 Insurance [employer] MEDICARE PPO REPLACE MR [employer] MEDICARE PPO REPLACE MR [place] PPO Member Subscriber Plan / Payer (Ef fective 2017-Present) Name:John Ribeiro Relation to Subscriber:Self Name:John Ribeiro Payer ID:[id number] ([facility]) Type:Not on file Address: [address] [place] [address] Care Teams Health Social Work Professor Relationship Specialty Start Date End Date Darrel Rico MD PCP - General Family Medicine 10/08/17
--- OUTSIDE RECORDS SUMMARY | 2025-04-27 10:18 | XMS_ITS | Encounter Summary ---
Author Organization [place] [address] Care Team Providers Care Telegraph Dispatcher Name Role Phone Darrel Rico MD Primary Care Provider [phone] Encounter Details Date Type Department Care Team (Late st Contact Info) Description 04/25/2025 Orders Only [facility] [address] [address] Marge Zhang LPN Female genital prolapse, unspecified type (Primary Dx); Rectocele Social History Tobacco Use Types Packs/Day Years [...] as of this encounter Progress Notes * Marge Zhang LPN - 04/25/2025 2:59 PM EDT Images from the original note were not included. documented in this encounter Plan of Treatment Upcoming Encounters Date Type Department Care Team (Latest Contact Info) Description 05/02/2025 12:33 PM EDT Hospital Encounter [facility] PERI[facility] [address] [place] [address] Zoila Monroe MD [address] [place] [address] 05/02/2025 12:33 PM EDT Anesthesia Event [facility] PERI[facility] [address] [place] [address] Mary Lou Pnoce, JOLIE [address] [place] [address] 05/02/2025 12:33 PM EDT - 05/02/2025 1:28 PM EDT Surgery [facility] PERIOP [address] [place] [address] Zoila Monroe MD [address] [place] [address] ANTERIOR AND POSTERIOR REPAIR (CYSTOCELE AND RECTOCELE REPAIR) 06/12/2025 11:20 AM EDT Office Visit [facility] [address] [address] Rosa Elena Garcia, LAMINATING MACHINE OPERATOR [address] [place] [address] Scheduled Procedures Name Priority Associated Diagnoses Date/Ti me ANTERIOR AND POSTERIOR REPAIR (CYSTOCELE AND RECTOCELE REPAIR) Female genital prolapse, unspecified type Rectocele 05/02/2025 12:33 PM EDT documented as of this encounter Goals Goal Patient Goal Type Associated Problems Recent Progress Patient-Stated? Author Autogenerat ed Goal Care Plan Autogenerated Problem No Charmaine Colón documented as of this encounter Visit Diagnoses Diagnosis Female genital prolapse Unspecified genital prolapse Rectocele Female genital prolapse, unspecified type- Primary Rectocele Female genital prolapse, unspecified type Rectocele documented in this encounter Additional Health Concerns Active Problems Noted Date Diagnosed Date Autogenerated Problem 04/23/2025 documented as of this encounter Care Teams Telegraph Dispatcher Relationship Specialty Start Date End Date Darrel Rico MD PCP - General Family Medicine 10/08/17 documented as of this encounter
--- OUTSIDE RECORDS SUMMARY | 2025-04-27 10:18 | XMS_ITS | Encounter Summary ---
Author Organization [place] [address] Care Team Providers Care Thermoforming Machine Operator Name Role Phone Darrel Rico MD Primary Care Provider [phone] Reason for Visit * Reason Onset Date Comments Pre-op Call 04/25/2025 Encounter Details Date Type Department Care Team (Late st Contact Info) Description 04/25/2025 Telephone [facility] [address] [address] Marge Zhang LPN Pre-op Call Social History Tobacco Use Types Packs/Day Years [...] on file documented as of this encounter Miscellaneous Notes * Telephone Encounter - Marge Zhang LPN - 04/26/2025 11:25 AM EDT Patient notified * Telephone Encounter - Gina Yo PA-C - 04/26/2025 10:39 AM EDT Confirmed with Dr. Monroe that she is okay with this. Thanks! * Telephone Encounter - Marge Zhang LPN - 04/25/2025 11:07 AM EDTSummary: Pre-Op Call Urogyn Pre-op Phone Call 1. John Ribeiro, 1960 2. Procedure:Posterior Repair, Cystoscopy , Surgery Date/Time: 05/02/25 @ 1230 3. H&P by PCP: Patient is NOT cleared for surgery due to seeing PCP tomorrow, H&P completeddate: 04/26/25 by Lab Results: Imaging Results: Any past issues with anesthesia including malignant hyperthermia or latex allergy? POST OP N/V Pre-op Call: 1. NPO by midnight before surgery 2. No blood thinners x1 week, STOP Diclofenac and Ibuprofen today until after surgery 3. Arrive 2 hours prior to surgery 4. Please read the provided surgical folder with all the pre-op and post-op instructions. 5. ERAS instructions given 6. Encouraged to get D-Mannose and begin 3 days Pre-Op Marge Zhang LPN documented in this encounter Plan of Treatment Upcoming Encounters Date Type Department Care Team (Latest Contact Info) Description 05/02/2025 12:33 PM EDT Hospital Encounter [facility] PERIOP [address] [place] [address] Zoila Monroe MD [address] [place] [address] 05/02/2025 12:33 PM EDT Anesthesia Event [facility] PERI[facility] [address] [place] [address] Mary Lou Ponce APRN [address] [place] [address] 05/02/2025 12:33 PM EDT - 05/02/2025 1:28 PM EDT Surgery [facility] PERIOP [address] [place] [address] Zoila Monroe MD [address] [place] [address] ANTERIOR AND POSTERIOR REPAIR (CYSTOCELE AND RECTOCELE REPAIR) 06/12/2025 11:20 AM EDT Office Visit [facility] [address] [phone] Rosa Elena Garcia APRN [address] [place] [address] Scheduled Procedures Name Priority Associated Diagnoses Date/Ti [...] documented as of this encounter Care Teams Thermoforming Machine Operator Relationship Specialty Start Date End Date Darrel Rico MD PCP - General Family Medicine 10/08/17 documented as of this encounter
== END 2025-04-26 23:59 | disposition home or self-care (01) ==
LOC: LAB.DROPOF 04-27 10:12
PROVIDERS: PCP Nurse Practitioner Family; Visit Provider Nurse Practitioner Family
DX: Z01.818 Encounter for other preprocedural examination (principal); N81.6 Rectocele
CPT/HCPCS: 85025